=== PATIENT | male | born 1980 | race Caucasian/White ===

== ENCOUNTER 2018-10-21 13:09 | Emergency (ER) | payer MEDICAID, OTHER ==
[~2018-10-21] VITALS: Wt 79.5 kg
[2018-10-21] MEDS ORDERED: SOD CHLORIDE 0.9% 1,000 ML IV STA (14:25)
[2018-10-21] MEDS ORDERED: ONDANSETRON 4 MG INJ IV STA (14:25)
[2018-10-21] MEDS ORDERED: KETOROLAC 30 MG INJ IV STA (14:25)
[2018-10-21] MEDS ORDERED: ACETAMINOPHEN 325 MG TAB PO ONE (15:30)
[2018-10-21] MEDS ORDERED: GUAI120S26 PO (15:48)
[2018-10-21] MEDS ORDERED: IBUP-1542 PO (15:48)
[2018-10-21] MEDS ORDERED: AZIT250T PO (15:48)
[2018-10-21] MEDS ORDERED: ALBU18HF INHALATION (16:03)
[2018-10-21 16:06] VITALS: BP 128/75; PULSE 89; RESP 20
--- NOTE | 2018-10-21 17:22 | ERD ---
ER Documentation Chief Complaint Chief Complaint body ches,chills fever x 1 week HPI 37-year-old male patient with no significant past medical history presents to ED complaining of body aches, chills, cough, vomiting, diarrhea that started intimately for 1 month. Patient reports that he tried taking Tessalon Perles, without any relief of the symptoms. Ports he has had a few episodes of nonbilious nonbloody vomiting, nonmucoid nonbloody diarrhea. Denies any abdominal pain, chest pain, shortness of breath. ROS All systems reviewed and are negative except as per history of present illness. Medications Home Meds Active Scripts Albuterol Sulfate* (Ventolin HFA*) 18 Gm Hfa.aer.ad, 2 PUFF INHALATION Q4H, #1 INHALER Prov:PUNEET YOON PA-C 10/21/18 Ibuprofen* (Motrin*) 600 Mg Tab, 600 MG PO Q6, #30 TAB Prov:PUNEET YOON PA-C 10/21/18 Azithromycin* (Zithromax*) 250 Mg Tablet, 250 MG PO .ZPACK DIRECTED, #6 TAB TAKE 500 MG (2 TABS) THE FIRST DAY THEN 250 MG (1 TAB) DAYS 2-5 Prov:PUNEET YOON PA-C 10/21/18 Bwtsersyunn-T-Ujdpfavtws Hb* (Guaifenesin* DM Syrup) 120 Ml Syrup, 10 ML PO Q6H PRN for COUGH, #120 ML Prov:PUNEET YOON PA-C 10/21/18 Allergies Allergies: Coded Allergies: No Known Allergy (Unverified , 10/21/18) PMhx/Soc Medical and Surgical Hx: pt denies Medical Hx, pt denies Surgical Hx Hx Alcohol Use: Yes Hx Substance Use: No Hx Tobacco Use: No Smoking Status: Never smoker Physical Exam Vitals Vital Signs Date Temp Pulse Resp B/P (MAP) Pulse Ox O2 O2 Flow FiO2 Time Delivery Rate 10/21/18 100.0 89 20 128/75 99 Room Air 16:06 (92) 10/21/18 100.2 15:40 10/21/18 101.4 99 18 157/88 99 13:12 (111) Physical Exam Const: No acute distress Head: Atraumatic Eyes: Normal Conjunctiva ENT: Normal External Ears, Nose and Mouth. Neck: Full range of motion. No meningismus. Resp: Clear to auscultation bilaterally Cardio: Regular rate and rhythm, no murmurs Abd: Soft, non tender, non distended. Normal bowel sounds Skin: No petechiae or rashes Back: No midline or flank tenderness Ext: No cyanosis, or edema Neur: Awake and alert Psych: Normal Mood and Affect Result Diagram: 10/21/18 1436 10/21/18 1435 Results 24 hrs Laboratory Tests Test 10/21/18 14:35 10/21/18 14:36 Sodium Level 139 mmol/L Potassium Level 3.4 mmol/L Chloride Level 97 mmol/L Carbon Dioxide Level 28 mmol/L Anion Gap 14 Blood Urea Nitrogen 10 mg/dl Creatinine 0.89 mg/dl Est Glomerular Filtrat Rate mL/min > 60 mL/min Glucose Level 81 mg/dl Calcium Level 9.2 mg/dl Total Bilirubin 0.4 mg/dl Direct Bilirubin 0.00 mg/dl Indirect Bilirubin 0.4 mg/dl Aspartate Amino Transf (AST/SGOT) 48 IU/L Alanine Aminotransferase (ALT/SGPT) 45 IU/L Alkaline Phosphatase 59 IU/L Total Protein 7.9 g/dl Albumin 4.5 g/dl Globulin 3.40 g/dl Albumin/Globulin Ratio 1.32 Lipase 65 U/L Monoscreen Negative White Blood Count 5.6 10^3/ul Red Blood Count 5.13 10^6/ul Hemoglobin 15.0 g/dl Hematocrit 42.6 % Mean Corpuscular Volume 83.0 fl Mean Corpuscular Hemoglobin 29.2 pg Mean Corpuscular Hemoglobin Concent 35.2 g/dl Red Cell Distribution Width 12.2 % Platelet Count 172 10^3/UL Mean Platelet Volume 9.4 fl Immature Granulocytes % 0.200 % Neutrophils % 51.3 % Lymphocytes % 30.2 % Monocytes % 17.9 % Eosinophils % 0.2 % Basophils % 0.2 % Nucleated Red Blood Cells % 0.0 /100WBC Immature Granulocytes # 0.010 10^3/ul Neutrophils # 2.9 10^3/ul Lymphocytes # 1.7 10^3/ul Monocytes # 1.0 10^3/ul Eosinophils # 0.0 10^3/ul Basophils # 0.0 10^3/ul Nucleated Red Blood Cells # 0.0 10^3/ul Urine Color YELLOW Urine Clarity CLEAR Urine pH 6.0 Urine Specific [place] 1.008 Urine Ketones NEGATIVE mg/dL Urine Nitrite NEGATIVE mg/dL Urine Bilirubin NEGATIVE mg/dL Urine Urobilinogen NEGATIVE mg/dL Urine Leukocyte Esterase NEGATIVE Dora/ul Urine Hemoglobin NEGATIVE mg/dL Urine Glucose NEGATIVE mg/dL Urine Total Protein NEGATIVE mg/dl Current Medications Medications Dose Sig/Tank Start Time Status Last (Trade) Ordered Route PRN Stop Time Admin Dose Reason Admin Sodium 1,000 ml @ Q1H STAT 10/21/18 DC 10/21/18 Chloride 1,000 mls/hr IV 14:25 14:36 10/21/18 15:24 Ondansetron 4 mg ONCE STAT 10/21/18 DC 10/21/18 HCl (Zofran IV 14:25 14:38 Inj) 10/21/18 14:28 Ketorolac 30 mg ONCE STAT 10/21/18 DC 10/21/18 Tromethamine IV 14:25 14:38 (Toradol) 10/21/18 14:28 650 mg ONCE ONCE 10/21/18 DC 10/21/18 Acetaminophen PO 15:30 15:37 (Tylenol 10/21/18 15:31 Tab) Procedures/MDM 37-year-old male patient with no significant past medical history presents to ED complaining of body aches, chills, fever that started intermittently for 1 week but has had symptoms of cough for 1 month. Patient is afebrile and nontoxic- appearing. Patient was further worked up with CBC, CMP, lipase, UA, chest x- ray, influenza, Monospot. Patient's pain and symptoms have improved after treatment with 1 L of normal saline, 30 mg IV Toradol, 650 mg Tylenol. CBC: No leukocytosis. No e/o of systemic infection. No e/o anemia. CMP: No e/o severe acidosis, alkalosis, renal failure, diabetic ketoacidosis, liver disease Lipase within normal limits. Urine: No leukocyte esterase, no nitrites, no hematuria. Negative influenza and Monospot. PROCEDURE: XR Chest. CLINICAL INDICATION: Cough, fever TECHNIQUE: Single frontal view of the chest was obtained COMPARISON: None FINDINGS: The heart and mediastinum are within normal limits. There is mild elevation of the right diaphragm. The lungs are clear. There is no pleural effusion or pneumothorax. RPTAT: AA IMPRESSION: No acute disease. Patient likely has symptoms due to viral etiology. Low suspicion for testicular torsion, gastritis, GERD, peptic ulcer disease, cholecystitis, choledocholithiasis, cholangitis, pancreatitis, appendicitis, bowel obstruction, ileus, volvulus, nephrolithiasis, pyelonephritis, hepatitis, perforated viscus, diverticulitis, abdominal hernia, acute abdomen, mesenteric ischemia or other emergent conditions. Diagnosis: Fever, Vomiting and diarrhea, Cough Discharge medications: Ventolin, Ibuprofen, Zithromax, guaifenesin DM Follow up with primary care physician in 1-2 days for referral to branch lending manager. Instructed patient to return to the ED sooner for any worsening symptoms. Patient's questions were answered. Patient understood and agreed with discharge plan. Patient discharged stable. Departure Diagnosis: Primary Impression: Fever Fever type: unspecified Qualified Codes: R50.9 - Fever, unspecified Additional Impressions: Vomiting and diarrhea Cough Condition: Stable Patient Instructions: Viral Syndrome (Adult) Referrals: [facility] YOU HAVE RECEIVED A MEDICAL SCREENING EXAM AND THE RESULTS INDICATE THAT YOU DO NOT HAVE A CONDITION THAT REQUIRES URGENT TREATMENT IN THE EMERGENCY DEPARTMENT. FURTHER EVALUATION AND TREATMENT OF YOUR CONDITION CAN WAIT UNTIL YOU ARE SEEN IN YOUR DOCTORS OFFICE WITHIN THE NEXT 1-2 DAYS. IT IS YOUR RESPONSIBILITY TO MAKE AN APPOINTMENT FOR FOLOW-UP CARE. IF YOU HAVE A PRIMARY DOCTOR --you should call your primary doctor and schedule an appointment IF YOU DO NOT HAVE A PRIMARY DOCTOR YOU CAN CALL OUR PHYSICIAN REFERRAL HOTLINE AT IF YOU CAN NOT AFFORD TO SEE A PHYSICIAN YOU CAN CHOSE FROM THE FOLLOWING [facility] [address] [facility]. [facility] [address] [facility] [facility] [address] [facility]. [facility] [address] [facility] [address] [facility]. [facility]. [address] [facility] [facility]. [facility] YOU HAVE RECEIVED A MEDICAL SCREENING EXAM AND THE RESULTS INDICATE THAT YOU DO NOT HAVE A CONDITION THAT REQUIRES URGENT TREATMENT IN THE EMERGENCY DEPARTMENT. FURTHER EVALUATION AND TREATMENT OF YOUR CONDITION CAN WAIT UNTIL YOU ARE SEEN IN YOUR DOCTORS OFFICE WITHIN THE NEXT 1-2 DAYS. IT IS YOUR RESPONSIBILITY TO MAKE AN APPOINTMENT FOR FOLOW-UP CARE. IF YOU HAVE A PRIMARY DOCTOR --you should call your primary doctor and schedule and appointment IF YOU DO NOT HAVE A PRIMARY DOCTOR YOU CAN CALL OUR PHYSICIAN REFERRAL HOTLINE AT . IF YOU CAN NOT AFFORD TO SEE A PHYSICIAN YOU CAN CHOSE FROM THE FOLLOWING [facility] INSTITUTIONS: [facility] [address] [place] [address] [facility] [address] [place], [place] [id number] [place] [address] [address] [place] [address] [facility]/SPECIALTIES Additional Instructions: Llame al doctor MAANA y kiersten chico VERONICA PARA DENTRO DE 2-3 WATERS.Dgale a la secretaria que nosotros le instruimos hacer esta veronica.Avise o llame si rosas condicin se empeora antes de la veronica. Regresa aqui si peor o no mejor. PUNEET YOON PA-C Oct 21, 2018 17:22
== END 2018-10-21 16:08 | disposition home or self-care (01) ==
LOC: FTE 13:09
DX: R50.9 Fever, unspecified (principal); R11.10 Vomiting, unspecified; R19.7 Diarrhea, unspecified
CPT/HCPCS: 36415; 71045; 80053; 81003; 83690; 85025; 86308; 87400; 96374; 96375; J1885; J2405; J7030; Z7502; Z7610